=== PATIENT | female | born 1955 | race Caucasian/White ===

== ENCOUNTER 2017-08-07 01:49 | Emergency (ER) | payer BC ==
[2017-08-07] MEDS ORDERED: SODIUM CHLORIDE 0.9% 500 ML IV ONE (01:51)
[2017-08-07] MEDS ORDERED: ACETAMINOPHEN 1,000 MG/100 ML BTL IVPB ONE (01:55)
--- NOTE | 2017-08-07 02:01 | Emergency Department Record ---
History of Present Illness - General Chief complaint: Flank Pain Stated complaint: KIDNEY STONE Time Seen by Provider: 08/07/17 01:51 Source: Patient Mode of Arrival: Ambulatory Limitations: No limitations - History of Present Illness Initial comments: 61 yo female presents with flank pain on and off for 5 days. The pain is over the left flank to the left groin. No fever or chills. No retention. No hematuria. She reports having several prior stones in the past. She has never passed a stone without lithotripsy or a stent. Her last stone was about 4 years ago. Her urologist is doctor Garland. -: Days(s) (5) Location: LLQ Radiation: L flank Severity: Moderate Quality: Aching, Burning Consistency: Intermittent Improves with: None Worsens with: None Patient : No Associated Symptoms: Denies other symptoms - Related Data Home Medications Medication Instructions Recorded Confirmed Last Taken Aspirin [Aspir-Low] 81 mg PO DAILY 08/07/17 08/07/17 08/06/17 Cholecalciferol (Vitamin D3) 5,000 unit PO DAILY 08/07/17 08/07/17 08/06/17 [Vitamin D3] Cyanocobalamin (Vitamin B-12) 500 mcg PO DAILY 08/07/17 08/07/17 08/06/17 [Vitamin B12] Fenofibrate Nanocrystallized 145 mg PO DAILY 08/07/17 08/07/17 08/06/17 [Tricor] Previous Rx's Medication Instructions Recorded Hydrocodone/Acetaminophen [Enola 1 each PO Q8H #15 tablet 08/07/17 7.5-325 Tablet] Tamsulosin HCl [Flomax] 0.4 mg PO DAILY #10 cap.er.24h 08/07/17 Allergies Allergy/AdvReac Type Severity Reaction Status Date / Time steroid eye drop Allergy SWELLING Uncoded 03/28/15 15:47 OF THE TONGUE Review of Systems Constitutional: Denies: Chills, Fever, Malaise, Weakness Eyes: Denies: Eye discharge ENT: Denies: Congestion, Throat pain Respiratory: Denies: Cough, Dyspnea, Hemoptysis, Stridor, Wheezes Cardiovascular: Denies: Chest pain, Syncope Endocrine: Denies: Fatigue Gastrointestinal: Reports: As per HPI, Abdominal pain. Denies: Diarrhea, Nausea , Vomiting Genitourinary: Denies: Dysuria, Frequency, Hematuria, Urgency Musculoskeletal: Reports: As per HPI, Back pain Skin: Denies: Bruising, Change in color, Rash Neurological: Denies: Headache, Numbness, Weakness Psychiatric: Denies: Anxiety Hematological/Lymphatic: Denies: Blood Clots, Easy bleeding, Easy bruising, Swollen glands Past Medical History - SOCIAL HISTORY Smoking Status: Former smoker - RESPIRATORY Hx Respiratory Disorders: No - CARDIOVASCULAR Hx Cardio Disorders: Yes Hx Hypotension: Yes - NEURO Hx Neuro Disorders: No Hx of Migraines: Yes (with spinal for delivery child) - GI Hx GI Disorders: No - Hx Genitourinary Disorders: Yes Hx Renal Disease: No Comment:: hyst 1990 - ENDOCRINE Hx Endocrine Disorders: Yes Comment:: sugars range 120-150 in am/ A1C 6.12 March 2015 - MUSCULOSKELETAL Hx Musculoskeletal Disorders: Yes Hx Arthritis: Yes (R hip) - PSYCH Hx Psych Problems: No - HEMATOLOGY/ONCOLOGY Hx Hematology/Oncology Disorders: No 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 negative: Conjunctival injection, Periorbital swelling - ENT ENT exam: Normal exam, Mucous membranes moist Ear exam: Normal external inspection Nasal Exam: Normal inspection Mouth exam: Normal external inspection - Neck Neck exam: Normal inspection, Full ROM. negative: Tenderness - Respiratory Respiratory exam: Normal lung sounds bilaterally. negative: Respiratory distress - Cardiovascular Cardiovascular Exam: Regular rate, Normal rhythm, Normal heart sounds - GI/Abdominal GI/Abdominal exam: Soft. negative: Tenderness - Rectal Rectal exam: Deferred - exam: Deferred - Extremities Extremities exam: Normal inspection, Full ROM, Normal capillary refill. negative: Pedal edema, Tenderness - Back Back exam: Reports: Normal inspection, Full ROM. Denies: CVA tenderness (R), CVA tenderness (L), Muscle spasm, Rash noted, Tenderness - Neurological Neurological exam: Alert, Normal gait, Oriented X3, Reflexes normal - Psychiatric Psychiatric exam: Normal affect, Normal mood - Skin Skin exam: Dry, Intact, Normal color, Warm Course - Reevaluation(s) Reevaluation #1: EMR reviewed. No prior reports or imaging of the abdomen The vitals were reviewed No acute changes. 08/07/17 02:01 12 02:14 No acute changes on the CBC 08/07/17 02:35 The BMP was reviewed No acute changes 08/07/17 02:[address] scan demonstrates a 4mm stone in the proximal left ureter at the UPJ. Moderate hydro. Cholelithiasis. 08/07/17 02:48 The patient reports her pain is well controlled With the size under 5mm I explained she might pass this stone. She was given Flomax. She has taken this prior. Her UA is negative for Nitrite and LE. She was given a copy of her CT. She is to be seen this weekend if her pain returns , is uncontrolled, any fever or vomiting. She is to call Dr Garland first of the week for close follow up as well. No bacterial in the UA or WBC's. 08/07/17 02:57 Medical Decision Making - Lab Data Result diagrams: 08/07/17 01:55 08/07/17 01:55 Disposition Disposition: Discharge Clinical Impression: Renal calculus, left Disposition: Home, Self-Care Condition: (1) Good Instructions: Renal Colic (ED) Additional Instructions: Go to an ER immediately if you have uncontrolled pain, any fever, vomiting or unable to urinate Call Dr Garland on Wednesday if the stone has not passed Strain your urine to try to visualize the stone Prescriptions: Hydrocodone/Acetaminophen [Enola 7.5-325 Tablet] 1 each PO Q8H #15 tablet Tamsulosin HCl [Flomax] 0.4 mg PO DAILY #10 cap.er.24h Forms: Patient Portal Access Time of Disposition: 02:53 Quality - Quality Measures Quality Measures: N/A - Blood Pressure Screening Does Patient Have Any of the Following: No Blood Pressure Classification: Pre-Hypertensive BP Reading Systolic Measurement: 134 Diastolic Measurement: 79 Screening for High Blood Pressure: < Pre-Hypertensive BP, F/U Documented > [ G8950] Pre-Hypertensive Follow-up Interventions: Referral to alternative/primary care provider.
[2017-08-07 02:07] LABS: HEMATOCRIT 42.4 % (35.0-47.0); HEMOGLOBIN 13.9 gm/dl (11.6-16.0); MEAN CELL VOLUME 89.6 fl (81-97); MEAN CORPUSCULAR HEMOGLOBIN 29.4 pg (27-33); MEAN CORPUSCULAR HGB CONC 32.8 g/dl (32-36); MEAN PLATELET VOLUME 9.5 fl (7.4-10.4); PLATELET COUNT 405 K/uL (130-400); RED BLOOD COUNT 4.73 M/uL (3.80-5.40); WHITE BLOOD COUNT W/O DIFF 6.9 K/uL (4.2-12.2)
[2017-08-07 02:22] LABS: BLOOD UREA NITROGEN 25 mg/dL (6-20); CREATININE 0.7 mg/dL (0.5-0.9); EST GLOMERULAR FILTRATION RATE > 60 mL/min
[2017-08-07 02:25] LABS: GLUCOSE,RANDOM 131 mg/dL (74-109)
[2017-08-07] MEDS ORDERED: TAMSULOSIN HCL 0.4 MG CAP.ER.24H PO ONE (02:42)
[2017-08-07 02:44] LABS: URINE APPEARANCE CLEAR; URINE BILIRUBIN NEGATIVE (NEGATIVE); URINE BLOOD SMALL (NEGATIVE); URINE COLOR YELLOW; URINE GLUCOSE (UA) NEGATIVE (NEGATIVE); URINE KETONE NEGATIVE (NEGATIVE); URINE LEUKOCYTE ESTERASE NEGATIVE (NEGATIVE); URINE NITRITE NEGATIVE (NEGATIVE); URINE PROTEIN NEGATIVE (NEGATIVE); URINE UROBILINOGEN 0.2 E.U./dL (0.20 - 1.00)
[2017-08-07] MEDS ORDERED: KETOROLAC 30 MG/ML VIAL IVP ONE (02:48)
[2017-08-07] MEDS ORDERED: HYDROCODONE/APAP 7.5/325MG TABLET PO ONE (02:50)
[2017-08-07 02:55] LABS: URINE WBC 0 - 2 (0-2/hpf)
--- NOTE | 2017-08-07 11:31 | CT SCAN REPORT ---
EXAM: CT SCAN ABDOMEN/PELVIS WO CONTRAST HISTORY: ACUTE LEFT LOWER QUADRANT ABDOMINAL PAIN. TECHNIQUE: Contiguous axial images from the lung bases through the symphysis pubis were obtained without IV contrast. COMPARISON: Abdomen and pelvis CT, 04/04/2012. FINDINGS: Lung bases are clear. The liver and spleen are unremarkable. Moderate left hydronephrosis due to partially obstructing calculus at the left ureterovesical junction measuring 3 mm. Additional nonobstructing 2 mm calculus , mid left kidney. Nonobstructing 1 mm calculus, mid right kidney, as well as the lower right kidney respectively. Multiple unilocular cysts in the right kidney; largest in the interpolar region measuring 2.7 cm. Adrenals and pancreas are normal. Tiny dependent stones in the gallbladder. Status post Dimas-en-Y gastric bypass surgery. Visualized loops of small and large bowel are of normal caliber. Moderate fecal material throughout the colon. The appendix is not seen with certainty although there are no pericecal inflammatory changes. No free intraperitoneal fluid or adenopathy. Mild calcification of the abdominal aorta without aneurysm. Abdominal wall is unremarkable. Urinary bladder is unremarkable. No lytic or blastic lesion. IMPRESSION: 1. MODERATE LEFT HYDRONEPHROSIS WITH PARTIALLY OBSTRUCTING 3 MM CALCULUS AT THE LEFT URETEROVESICAL JUNCTION. ADDITIONAL NONOBSTRUCTING INTRARENAL CALCULI. 2. BENIGN BOSNIAK TYPE 1 RIGHT RENAL CYST. 3. CHOLELITHIASIS. 4. STATUS POST DIMAS-EN-Y GASTRIC BYPASS. JOB NUMBER: [id number] MTDD
== END 2017-08-07 03:06 | disposition home or self-care (01) ==
LOC: ER 01:49
DX: N13.2 Hydronephrosis with renal and ureteral calculous obstruction (principal); Z87.442 Personal history of urinary calculi
CPT/HCPCS: 99284 ×2; 96374; 80048; 81001; 85027; 74176; J1885; 96375

== ENCOUNTER 2018-08-05 14:02 | Emergency (ER) | payer BC ==
--- NOTE | 2018-08-05 14:22 | Emergency Department Record ---
History of Present Illness - General Chief complaint: Extremity Problem Stated complaint: TOE ON RT FOOT IN INFECTED Time Seen by Provider: 08/05/18 14:19 Source: Patient Mode of Arrival: Ambulatory Limitations: No limitations - History of Present Illness Initial comments: The patient has a sore on her R 2nd toe for a month and it is not healing. She believes she need an abx. There is no trauma, injury, or foot pain. MD Complaint: Extremity pain Onset/Timin -: Month(s) Location: Right, Foot History of Same: No Severity scale (1-10): 3 Quality: Other Consistency: Constant Improves with: Nothing Worsens with: Nothing Associated Symptoms: Denies other symptoms - Related Data Previous Rx's Medication Instructions Recorded Cephalexin [Keflex] 500 mg PO TID #21 cap 08/05/18 Allergies Allergy/AdvReac Type Severity Reaction Status Date / Time steroid eye drop Allergy SWELLING Uncoded 03/28/15 15:47 OF THE TONGUE Travel Screening - Travel/Exposure Within Last 30 Days Have you traveled within the last 30 days?: No Review of Systems Constitutional: Denies: Chills, Fever Past Medical History - SOCIAL HISTORY Smoking Status: Former smoker - RESPIRATORY Hx Respiratory Disorders: No - CARDIOVASCULAR Hx Cardio Disorders: Yes Hx Hypotension: Yes - NEURO Hx Neuro Disorders: No Hx of Migraines: Yes (with spinal for delivery child) - GI Hx GI Disorders: No - Hx Genitourinary Disorders: Yes Hx Renal Disease: No Comment:: hyst 1990 - ENDOCRINE Hx Endocrine Disorders: Yes Comment:: sugars range 120-150 in am/ A1C 6.12 March 2015 - MUSCULOSKELETAL Hx Musculoskeletal Disorders: Yes Hx Arthritis: Yes (R hip) - PSYCH Hx Psych Problems: No - HEMATOLOGY/ONCOLOGY Hx Hematology/Oncology Disorders: No 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 ). negative: Normal inspection (There is a very superficial ulcer with very slight erythema surrounding the dorsal R 2nd toe over the distal phalynx. There is no toe swelling proximally or streaking erythema. The R foot is non tender. ), Joint swelling - Neurological Neurological exam: Alert. negative: Motor sensory deficit Course Vital Signs 08/05/18 14:16 Temperature 98.1 F Pulse Rate 82 Respiratory 20 Rate Blood Pressure 120/80 Pulse Ox 99 - Reevaluation(s) Reevaluation #1: I did discuss the need for an oral Abx and a referral to Dr. Gipson and the patient agrees with the plan. 08/05/18 14:25 Disposition Disposition: Discharge Clinical Impression: Toe pain, right Disposition: Home, Self-Care Condition: (2) Stable Instructions: Blister (ED) Additional Instructions: Please dress with Abx ointment and take the Keflex. Please see Dr. Gipson in the Family Practice clinic next week. Return to the ER for any worsening symptoms. Prescriptions: Cephalexin [Keflex] 500 mg PO TID #21 cap Referrals: Family Practice/[facility] [Provider Group] ERICK GIPSON, D.P.M. [DOCTOR OF PODIATRY MEDICINE] - Forms: Patient Portal Access Quality - Quality Measures Quality Measures: N/A - Blood Pressure Screening View Details: Yes Does Patient Have Any of the Following: No Blood Pressure Classification: Pre-Hypertensive BP Reading Systolic Measurement: 120 Diastolic Measurement: 80 Screening for High Blood Pressure: < Pre-Hypertensive BP, F/U Documented > [ G8950] Pre-Hypertensive Follow-up Interventions: Referral to alternative/primary care provider.
== END 2018-08-05 14:35 | disposition home or self-care (01) ==
LOC: ER 14:02
DX: L97.519 Non-pressure chronic ulcer of other part of right foot with unspecified severity (principal); M79.674 Pain in right toe(s); I10 Essential (primary) hypertension; Z87.891 Personal history of nicotine dependence
CPT/HCPCS: 99282

== ENCOUNTER 2019-04-25 15:04 | Emergency (ER) | payer BC ==
--- NOTE | 2019-04-25 16:11 | Emergency Department Record ---
History of Present Illness - General Chief complaint: Cold Stated complaint: SINUS CONGESTION Time Seen by Provider: 04/25/19 16:01 Source: Patient Mode of Arrival: Ambulatory Limitations: No limitations - History of Present Illness Initial comments: 63 yo female presents with congestion. this has been present for 6 weeks with left frontal and left maxillary tenderness. She is minimally able to breath out of her left nostril. No blood. No fever. She has minimal dry cough. No prior ENT surgery. No dizziness. No vision changes. She has some ear fullness. No neck pain or adenopathy. Dr Cheek is her PCP. She was unable to make an appointment until May 15. MD complaint: Other -: Week(s) (6) Location: Nose Severity: Moderate Quality: Aching Consistency: Constant Improves with: None Worsens with: Other (Blowing her nose) Associated Symptoms: Cough, Rhinorrhea - Related Data Home Medications Medication Instructions Recorded Confirmed Last Taken Hydrochlorothiazide [Hctz] 25 mg PO DAILY 04/25/19 04/25/19 Unknown Previous Rx's Medication Instructions Recorded Amoxicillin 500Mg Capsule [Amoxil] 500 mg PO TID #30 tab 04/25/19 Cetirizine HCl [Zyrtec] 10 mg PO DAILY #30 cap 04/25/19 Fluticasone Propionate [Flonase] 2 spray EACH NARES DAILY #1 bottle 04/25/19 Allergies Allergy/AdvReac Type Severity Reaction Status Date / Time steroid eye drop Allergy SWELLING Uncoded 03/28/15 15:47 OF THE TONGUE Review of Systems Constitutional: Denies: Chills, Fever, Malaise, Weakness Eyes: Denies: Eye discharge ENT: Reports: Congestion, Ear pain. Denies: Dental pain, Epistaxis, Throat pain Respiratory: Reports: Cough. Denies: Dyspnea, Hemoptysis, Stridor, Wheezes Cardiovascular: Denies: Chest pain, Palpitations, Syncope Endocrine: Denies: Fatigue Gastrointestinal: Denies: Abdominal pain, Diarrhea, Nausea, Vomiting Genitourinary: Denies: Dysuria, Urgency Musculoskeletal: Denies: Arthralgia, Back pain, Joint swelling, Myalgia Skin: Denies: Bruising, Change in color, Rash Neurological: Reports: Headache (sinus area on left). Denies: Numbness, Weakness Psychiatric: Denies: Anxiety Hematological/Lymphatic: Denies: Easy bleeding, Easy bruising Past Medical History - SOCIAL HISTORY Smoking Status: Former smoker - RESPIRATORY Hx Respiratory Disorders: No - CARDIOVASCULAR Hx Cardio Disorders: Yes Hx Hypotension: Yes - NEURO Hx Neuro Disorders: No Hx of Migraines: Yes (with spinal for delivery child) - GI Hx GI Disorders: No - Hx Genitourinary Disorders: Yes Hx Renal Disease: No Comment:: hyst 1990 - ENDOCRINE Hx Endocrine Disorders: Yes Comment:: sugars range 120-150 in am/ A1C 6.12 March 2015 - MUSCULOSKELETAL Hx Musculoskeletal Disorders: Yes Hx Arthritis: Yes (R hip) - PSYCH Hx Psych Problems: No - HEMATOLOGY/ONCOLOGY Hx Hematology/Oncology Disorders: No 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 negative: Conjunctival injection, Scleral icterus - ENT ENT exam: Mucous membranes moist, Normal orophraynx, TM's normal bilaterally. negative: Mucous membranes dry Ear exam: Normal external inspection Nasal Exam: Discharge (occluded left nasal cavity, clear discharge), Sinus tenderness (left frontal and maxillary). negative: Active bleeding, Dried blood Mouth exam: Normal external inspection Teeth exam: Normal inspection Throat exam: Normal inspection - Neck Neck exam: Normal inspection - Respiratory Respiratory exam: Normal lung sounds bilaterally. negative: Rhonchi, Stridor, Wheezes - Cardiovascular Cardiovascular Exam: Regular rate, Normal rhythm, Normal heart sounds - Neurological Neurological exam: Alert, Normal gait, Oriented X3. negative: Altered - Psychiatric Psychiatric exam: Normal affect, Normal mood - Skin Skin exam: Dry, Intact, Normal color, Warm Course - Reevaluation(s) Reevaluation #1: 04/25/19 18:31 The examination is consistent with sinusitis We discussed treatment plan at home and follow up with the PCP Disposition Disposition: Discharge Clinical Impression: Sinusitis Disposition: Home, Self-Care Condition: (1) Good Instructions: Sinusitis (ED) Additional Instructions: Call your doctor for the next available follow up appointment Review this ER visit and the tests performed with your family doctor Return to the ER for a recheck if worse, any new concerns or questions Take the prescriptions provided as directed Prescriptions: Amoxicillin 500Mg Capsule [Amoxil] 500 mg PO TID #30 tab Fluticasone Propionate [Flonase] 2 spray EACH NARES DAILY #1 bottle Cetirizine HCl [Zyrtec] 10 mg PO DAILY #30 cap Forms: Patient Portal Access Time of Disposition: 16:25 Quality - Quality Measures Quality Measures: N/A - Blood Pressure Screening Does Patient Have Any of the Following: No Blood Pressure Classification: Hypertensive Reading Systolic Measurement: 149 Diastolic Measurement: 90 Screening for High Blood Pressure: < Pre-Hypertensive BP, F/U Documented > [G8950] Pre-Hypertensive Follow-up Interventions: Referral to alternative/primary care provider.
== END 2019-04-25 16:54 | disposition home or self-care (01) ==
LOC: ER 15:04
DX: J01.90 Acute sinusitis, unspecified (principal); R05 Cough; Z87.891 Personal history of nicotine dependence
CPT/HCPCS: 99283